=== PATIENT | male | born 1950 | race Hispanic/Latino ===

== ENCOUNTER → 2019-02-21 | Outpatient (CLI) | payer MEDICARE ==
--- NOTE | 2019-02-21 09:09 | Diagnostic Imaging Report ---
EXAMINATION: Scrotal ultrasound CLINICAL INDICATION: Testicular pain. COMPARISON: None. TECHNIQUE: Grayscale and color Doppler evaluation of the scrotum was performed in transverse and longitudinal planes. FINDINGS: The right testicle measures 3.9 x 2.2 x 4 cm. There are no masses or calcifications.. The right epididymis measures 1 x 0.6 x 0.6 cm. No nodules or masses.. Trace right hydrocele. No varicocele. There is normal flow to the right testicle, without evidence of torsion. The left testicle measures 4.3 x 1.8 x 3.8 cm. There are no masses or calcifications.. The left epididymis measures 0.7 x 0.7 x 0.8 cm. No nodules or masses.. Small left hydrocele. No varicocele. There is normal flow to the left testicle without evidence of torsion. The scrotum has a normal appearance, without focal lesions. Impression: Trace bilateral hydroceles. Unremarkable sonographic appearance of the testes. Signed by: Dr. Jovon Felton M.D. on 02/21/2019 9:06 AM
== END ==
LOC: US 07:39
PROVIDERS: ATTEND Urology
DX: G89.29 Other chronic pain (principal); N43.3 Hydrocele, unspecified
CPT/HCPCS: 76870; 93976